=== PATIENT | male | born 1970 | race Caucasian/White ===

== ENCOUNTER 2017-02-02 00:23 | Emergency (ER) | payer OTHER, SELFPAY ==
--- NOTE | 2017-02-02 01:00 | ERPHSYRPT ---
- History of Present Illness Time Seen by Provider: 02/02/17 00:46 Source: patient Exam Limitations: no limitations Patient Subjective Stated Complaint: avel was at home home blood sugar went low , and began seizures lasting 30 to 40 seconds and went on for about 5 minutes Triage Nursing Assessment: pt alert and orietned pupils perla3, lung sounds clear, tracking well, avel have left leg leow the knee amputation x2 yrs. diabetic neuropathy all voer states he was in bed esleep and noticed something was off. woke him up and gave him glucagon and then he began having seizure activity and called ambulance Physician History: ABOUT 90 MINUTES AGO PT HAD A BLOOD GLUCOSE BELOW 20 AND HAD INTERMITTENT GENERALIZED SEIZURES LASTING UP TO 40 SECONDS PER SEIZURE FOR 5 MINUTES; DENIES PAIN, VOMITING, HEADACHE, FEVER. Allergies/Adverse Reactions: No Known Drug Allergies Allergy (Verified 02/02/17 01:02) Home Medications: Insulin Lispro [Humalog] 0 unit SQ AC 02/12/13 [History] Docusate Sodium [Dulcolax Stool Softener] 100 mg PO BID 11/30/15 [History] Simvastatin 40 mg [Zocor 40 mg] 40 mg PO DAILY 11/30/15 [History] Losartan Potassium [Cozaar 100Mg Tablet] 100 mg PO DAILY 12/14/15 [History] Amlodipine Besylate 5 mg [Norvasc 5 mg] 5 mg PO HS 12/29/15 [History] Empagliflozin [Jardiance] 10 mg PO DAILY 03/24/16 [History] Hydralazine HCl 25 mg PO BID 03/24/16 [History] Losartan/Hydrochlorothiazide [Losartan-Hctz 100-25 mg Tab] 1 tab PO DAILY [History] Hx Tetanus, Diphtheria Vaccination/Date Given: Yes Hx Influenza Vaccination/Date Given: No Hx Pneumococcal Vaccination/Date Given: No Immunizations Up to Date: Yes - Review of Systems Constitutional: No Fever Respiratory: No Dyspnea Cardiac: No Chest Pain Abdominal/Gastrointestinal: No Abdominal Pain, No Vomiting Neurological: Seizure, No Headache All Other Systems: Reviewed and Negative - Past Medical History Pertinent Past Medical History: Yes Neurological History: No Pertinent History ENT History: No Pertinent History Cardiac History: No Pertinent History, High Cholesterol, Hypertension Respiratory History: Other Endocrine Medical History: Diabetes Type II Musculoskeletal History: No Pertinent History, Other GI Medical History: No Pertinent History History: No Pertinent History Psycho-Social History: No Pertinent History Male Reproductive Disorders: No Pertinent History Other Medical History: LUNG BX/ LUNG MASS. Lt BKA - Past Surgical History Past Surgical History: Yes Neuro Surgical History: No Pertinent History Cardiac: Cardiac Catheterization Respiratory: Other Gastrointestinal: Appendectomy Genitourinary: No Pertinent History Musculoskeletal: Other Male Surgical History: No Pertinent History Other Surgical History: LUNG BX/MASS NEGATIVE. BONE TUMOR REMOVED. LT BKA - Social History Smoking Status: Former smoker How long have you smoked: 34 years Exposure to second hand smoke: No Drug Use: none Patient Lives Alone: No - Nursing Vital Signs Nursing Vital Signs: Initial Vital Signs Temperature 98.8 F Temperature Source Oral Pulse Rate 76 Respiratory Rate 18 Blood Pressure [Right Arm] 132/74 Pain Intensity 0 - Physical Exam General Appearance: alert Eye Exam: PERRL/EOMI Ears, Nose, Throat Exam: TMs normal, pharynx normal, moist mucous membranes Neck Exam: normal inspection Respiratory Exam: lungs clear Cardiovascular Exam: normal heart sounds Gastrointestinal/Abdomen Exam: soft, normal bowel sounds Back Exam: normal range of motion Extremity Exam: other (LEFT BKA) Neurologic Exam: alert, cooperative, No sensation nml (NEUOPATHY) Skin Exam: warm, dry SpO2 Interpretation: normal SpO2: 98 Oxygen Delivery: Room Air - Course Nursing assessment & vital signs reviewed: Yes - CT Exams Head CT Interpretation: Tele-radiologist Report (NO ACUTE FINDINGS) Ordered Tests: Active Orders 24 hr Category Date Time Status Accucheck STAT Care 02/02/17 00:53 Active Clean Catch Urine Specimen STAT Care 02/02/17 01:20 Active EKG-ER Only STAT Care 02/02/17 02:42 Active HEAD WITHOUT CONTRAST [CT] Stat Exams 02/02/17 00:53 Taken AMYLASE Stat Lab 02/02/17 00:45 Completed CBC W DIFF Stat Lab 02/02/17 00:45 Completed CMP Stat Lab 02/02/17 00:45 Completed LIPASE Stat Lab 02/02/17 00:45 Completed MAG [MAGNESIUM] Stat Lab 02/02/17 00:45 Completed Manual Differential NC Stat Lab 02/02/17 00:45 Completed UA W/ MICROSCOPIC Stat Lab 02/02/17 00:50 Completed Urine Triage Profile Stat Lab 02/02/17 00:50 Completed Medication Summary Discontinued Medications Generic Name Dose Route Start Last Admin Trade Name Malka PRN Reason Stop Dose Admin Dextrose Confirm 02/02/17 01:47 D50w 50 Ml Abboject Administered 02/02/17 01:48 Dose 50 ml IV .STK-MED ONE Dextrose 50 ml 02/02/17 01:56 02/02/17 01:57 D50w 50 Ml Abboject IV 02/02/17 01:57 50 ml STAT ONE Administration Lab/Rad Data: Laboratory Result Diagrams 02/02/17 00:45 02/02/17 00:45 Laboratory Results 02/02/17 02/02/17 02/02/17 Range/Units 00:50 00:50 00:45 WBC (4.0-10.5) K/mm3 RBC (4.1-5.6) M/mm3 Hgb (12.5-18.0) gm/dl Hct (42-50) % MCV (78-100) fl MCH (26-32) pg MCHC (32-36) g/dl RDW (11.5-14.0) % Plt Count (150-450) K/mm3 MPV (6-9.5) fl Segmented Neutrophils (36.-66.) % Lymphocytes (Manual) (24-44) % Monocytes (Manual) (0.0-12.0) % Differential Comment Platelet Estimate (NORMAL) Sodium (136-145) mEq/L Potassium (3.5-5.1) mEq/L Chloride (98-107) mEq/L Carbon Dioxide (21-32) mEq/L Anion Gap (5-15) MEQ/L BUN (9-20) mg/dL Creatinine (0.55-1.30) mg/dl Estimated GFR ML/MIN Glucose (70-110) MG/DL Calcium (8.5-10.1) mg/dL Magnesium 1.6 L (1.8-2.4) mg/dL Total Bilirubin (0.2-1.0) mg/dL AST (15-37) U/L ALT (12-78) U/L Alkaline Phosphatase (46-116) U/L Serum Total Protein (6.4-8.2) gm/dL Albumin (3.4-5.0) g/dL Amylase (25-115) U/L Lipase (73-393) U/L Ur Collection Type CLEAN CATCH Urine Color YELLOW (YELLOW) Urine Appearance CLEAR (CLEAR) Urine pH 6.0 (5-6) Ur Specific Plessis 1.020 (1.005-1.025) Urine Protein 100 (Negative) Urine Glucose (UA) NEGATIVE (NEGATIVE) mg/dL Urine Ketones NEGATIVE (NEGATIVE) Urine Nitrite NEGATIVE (NEGATIVE) Urine Bilirubin NEGATIVE (NEGATIVE) Urine Urobilinogen 0.2 (0-1) mg/dL Urine WBC (Auto) NEGATIVE (NEGATIVE) Urine RBC (Auto) MODERATE (0-5) Pepe/ul Urine Microscopic RBC 5-10 (0-2) /HPF Ur Epithelial Cells FEW (FEW) /HPF Urine Bacteria RARE (NEGATIVE) /HPF Urine Mucus SLIGHT (NEGATIVE) /HPF Urine Opiates Level NEG. (NEGATIVE) Ur Methadone NEG. (NEGATIVE) Urine Barbiturates NEG. (NEGATIVE) Ur Phencyclidine (PCP) NEG. (NEGATIVE) Urine Amphetamine NEG. (NEGATIVE) U Benzodiazepine Level NEG. (NEGATIVE) Urine Cocaine NEG. (NEGATIVE) Urine Marijuana (THC) NEG. (NEGATIVE) Specimen Received 02/02/17:0030 02/02/17 02/02/17 02/02/17 Range/Units 00:45 00:45 00:45 WBC 19.6 H (4.0-10.5) K/mm3 RBC 4.85 (4.1-5.6) M/mm3 Hgb 14.4 (12.5-18.0) gm/dl Hct 41.6 L (42-50) % MCV 85.8 (78-100) fl MCH 29.7 (26-32) pg MCHC 34.6 (32-36) g/dl RDW 12.8 (11.5-14.0) % Plt Count 244 (150-450) K/mm3 MPV 9.4 (6-9.5) fl Segmented Neutrophils 84 H (36.-66.) % Lymphocytes (Manual) 7 L (24-44) % Monocytes (Manual) 9 (0.0-12.0) % Differential Comment NORMAL Platelet Estimate NORMAL (NORMAL) Sodium 136 (136-145) mEq/L Potassium 3.1 L (3.5-5.1) mEq/L Chloride 101 (98-107) mEq/L Carbon Dioxide 23.1 (21-32) mEq/L Anion Gap 14.9 (5-15) MEQ/L BUN 21 H (9-20) mg/dL Creatinine 1.34 H (0.55-1.30) mg/dl Estimated GFR > 60 ML/MIN Glucose 88 (70-110) MG/DL Calcium 9.1 (8.5-10.1) mg/dL Magnesium (1.8-2.4) mg/dL Total Bilirubin 0.3 (0.2-1.0) mg/dL AST 23 (15-37) U/L ALT 27 (12-78) U/L Alkaline Phosphatase 95 (46-116) U/L Serum Total Protein 7.4 (6.4-8.2) gm/dL Albumin 3.6 (3.4-5.0) g/dL Amylase 33 (25-115) U/L Lipase 70 L (73-393) U/L Ur Collection Type Urine Color (YELLOW) Urine Appearance (CLEAR) Urine pH (5-6) Ur Specific Plessis (1.005-1.025) Urine Protein (Negative) Urine Glucose (UA) (NEGATIVE) mg/dL Urine Ketones (NEGATIVE) Urine Nitrite (NEGATIVE) Urine Bilirubin (NEGATIVE) Urine Urobilinogen (0-1) mg/dL Urine WBC (Auto) (NEGATIVE) Urine RBC (Auto) (0-5) Pepe/ul Urine Microscopic RBC (0-2) /HPF Ur Epithelial Cells (FEW) /HPF Urine Bacteria (NEGATIVE) /HPF Urine Mucus (NEGATIVE) /HPF Urine Opiates Level (NEGATIVE) Ur Methadone (NEGATIVE) Urine Barbiturates (NEGATIVE) Ur Phencyclidine (PCP) (NEGATIVE) Urine Amphetamine (NEGATIVE) U Benzodiazepine Level (NEGATIVE) Urine Cocaine (NEGATIVE) Urine Marijuana (THC) (NEGATIVE) Specimen Received - Departure Time of Disposition: 02:49 Departure Disposition: Home Clinical Impression: SEIZURE, HYPOKALEMIA, HYPOMAGNESEMIA, HYPOGLYCEMIA Condition: Fair Critical Care Time: No Instructions: Hypoglycemia Additional Instructions: FOLLOW UP WITH PRIVATE DOCTOR TOMORROW.
[2017-02-02 01:01] LABS: Mean Cell Volume 85.8 fl (78-100); Mean Corpuscular Hemoglobin 29.7 pg (26-32); Mean Platelet Volume 9.4 fl (6-9.5); Platelet Count 244 K/mm3 (150-450); Red Blood Count 4.85 M/mm3 (4.1-5.6); Red Cell Distribution Width 12.8 % (11.5-14.0); White Blood Count 19.6 K/mm3 (4.0-10.5)
[2017-02-02 01:10] LABS: LIPASE 70 U/L (73-393)
[2017-02-02 01:12] LABS: ALBUMIN 3.6 g/dL (3.4-5.0); ALKALINE PHOSPHATASE 95 U/L (46-116); ANION GAP 14.9 MEQ/L (5-15); BILIRUBIN,TOTAL 0.3 mg/dL (0.2-1.0); BLOOD UREA NITROGEN 21 mg/dL (9-20); CHLORIDE 101 mEq/L (98-107); Carbon Dioxide 23.1 mEq/L (21-32); Glucose 88 MG/DL (70-110); Potassium 3.1 mEq/L (3.5-5.1); SGOT/AST 23 U/L (15-37); SGPT/ALT 27 U/L (12-78); SODIUM 136 mEq/L (136-145); Total Protein 7.4 gm/dL (6.4-8.2)
[2017-02-02] MEDS ORDERED: D50W 50 ml Abboject IV ONE ×2 (01:47→01:56)
[2017-02-02 02:01] VITALS: O2SAT 98
[2017-02-02 02:01] LABS: COMPLETE URINE MICROSCOPIC? YES; Collection Type CLEAN CATCH; Mucus SLIGHT /HPF (NEGATIVE)
[2017-02-02 02:02] LABS: Bacteria RARE /HPF (NEGATIVE); Epithelial Cells FEW /HPF (FEW)
[2017-02-02 02:37] LABS: Platelet Estimate NORMAL (NORMAL); Total Cells Counted 100
[2017-02-02] MEDS ORDERED: POTASSIUM CHL 40 MEQ/30 ML ORAL SOLUTION ONE (02:57)
[2017-02-02] MEDS ORDERED: MAG-OX 400 ONE (02:57)
[2017-02-02 03:18] VITALS: BP 120/78; PULSE 68
--- NOTE | 2017-02-02 09:38 | XRAY ---
Indication: Seizure. Hypoglycemia. Multiple contiguous axial images obtained through the head without contrast. Comparison: October 27, 2011. Again normal appearing brain parenchyma, ventricles, and bony calvarium. There remains small polyps/retention cysts in the right sphenoid and left maxillary sinus grossly unchanged. Mastoid air cells are pneumatized and clear. Impression: Stable negative CT head without contrast exam. Stable paranasal polyps/retention cysts. Comment: Preliminary interpretation was made by [facility]. No discrepancy. CTDI 67.99
[2017-02-02] MEDS ORDERED: POTASSIUM CHL 40 MEQ/30 ML ORAL SOLUTION PO SCH (10:00)
[2017-02-02] MEDS ORDERED: MAG-OX 400 PO SCH (10:00)
== END 2017-02-02 03:15 | disposition home or self-care (01) ==
LOC: ED 00:23
DX: R56.9 Unspecified convulsions (principal); E87.6 Hypokalemia; E83.42 Hypomagnesemia; E16.2 Hypoglycemia, unspecified; E11.9 Type 2 diabetes mellitus without complications; Z79.4 Long term (current) use of insulin; Z79.899 Other long term (current) drug therapy
CPT/HCPCS: 36415; 70450; 80053; 80307; 81000; 82150; 82962; 83690; 83735; 85025; 93005; 96374; 99283; 99284; A9270-GY

== ENCOUNTER 2017-03-15 09:02 | Emergency (ER) | payer OTHER ==
[2017-03-15] MEDS ORDERED: Hydromorphone 1 mg/ml Ampule IM ONE (09:42)
[2017-03-15] MEDS ORDERED: Phenergan 25 MG INJ IM ONE (09:42)
[2017-03-15] MEDS ORDERED: Phenergan 25 MG INJ ONE (09:45)
--- NOTE | 2017-03-15 09:45 | ERPHSYRPT ---
- History of Present Illness Time Seen by Provider: 03/15/17 09:35 Source: patient Exam Limitations: clinical condition Patient Subjective Stated Complaint: fell going up steps this am and struck left ribs on a step. pain to left anterior upper ribs. Triage Nursing Assessment: ambulated to room guarding left upper chest. skin w/ d, color pale, resp shallow but nonlabored. states it hurts to take a deep breath. area tender to touch. no bruising noted. Physician History: PATIENT WITH HISTORY OF TYPE 2 DIABETES SLIPPED WHILE WALKING UP STEPS, FELL AND STRUCK LEFT SIDE OF CHEST UPON STEP. PATIENT HAS LEFT SIDED RIB PAIN, WORSE UPON MOTION OF TORSO. DENIES ASSOCIATED HEAD, NECK OR BACK INJURY. Occurred: just prior to arrival Reason for Fall: slipped Injuries/Pain Location: chest Loss of Consciousness: no loss of consciousness Severity of Pain-Max: moderate Severity of Pain-Current: moderate Modifying Factors: Improves With: movement Allergies/Adverse Reactions: No Known Drug Allergies Allergy (Verified 03/15/17 09:08) Home Medications: Insulin Lispro [Humalog] 0 unit SQ AC 02/12/13 [History] Simvastatin 40 mg [Zocor 40 mg] 40 mg PO HS 11/30/15 [History] Losartan Potassium [Cozaar 100Mg Tablet] 100 mg PO DAILY 12/14/15 [History] Hydralazine HCl 25 mg PO BID 03/24/16 [History] Losartan/Hydrochlorothiazide [Losartan-Hctz 100-25 mg Tab] 1 tab PO DAILY [History] Diltiazem HCl 240 mg [Cardizem CD 240 MG] 240 mg PO DAILY 03/15/17 [ History] Ergocalciferol (Vitamin D2) [Vitamin D] 50,000 unit PO WEEKLY 03/15/17 [History] Ezetimibe 10 mg [Zetia 10 MG] 10 mg PO DAILY 03/15/17 [History] Gabapentin [Neurontin] 600 mg PO TID 03/15/17 [History] Linaclotide [Linzess] 145 mcg PO DAILY 03/15/17 [History] Magnesium Oxide 400 mg [Mag-Ox 400] 400 mg PO BID 03/15/17 [History] Hx Tetanus, Diphtheria Vaccination/Date Given: No (2005) Hx Influenza Vaccination/Date Given: No Hx Pneumococcal Vaccination/Date Given: No Immunizations Up to Date: No - Review of Systems Constitutional: No Fever, No Chills Eyes: No Symptoms Ears, Nose, & Throat: No Symptoms Respiratory: No Symptoms, No Cough, No Dyspnea Cardiac: Chest Pain, No Edema, No Syncope Abdominal/Gastrointestinal: No Symptoms, No Abdominal Pain, No Nausea, No Vomiting, No Diarrhea Genitourinary Symptoms: No Symptoms, No Dysuria Musculoskeletal: No Symptoms, No Back Pain, No Neck Pain Skin: No Symptoms, No Rash Neurological: No Dizziness, No Focal Weakness, No Sensory Changes Psychological: No Symptoms Endocrine: No Symptoms All Other Systems: Reviewed and Negative - Past Medical History Pertinent Past Medical History: Yes Neurological History: No Pertinent History ENT History: No Pertinent History Cardiac History: No Pertinent History, High Cholesterol, Hypertension Respiratory History: Other Endocrine Medical History: Diabetes Type II Musculoskeletal History: No Pertinent History, Other GI Medical History: No Pertinent History History: No Pertinent History Psycho-Social History: No Pertinent History Male Reproductive Disorders: No Pertinent History Other Medical History: LUNG BX/ LUNG MASS. Lt BKA - Past Surgical History Past Surgical History: Yes Neuro Surgical History: No Pertinent History Cardiac: Cardiac Catheterization Respiratory: Other Gastrointestinal: Appendectomy Genitourinary: No Pertinent History Musculoskeletal: Other Male Surgical History: No Pertinent History Other Surgical History: LUNG BX/MASS NEGATIVE. BONE TUMOR REMOVED. LT BKA - Social History Smoking Status: Former smoker How long have you smoked: 34 years Exposure to second hand smoke: No Drug Use: none Patient Lives Alone: No - Nursing Vital Signs Nursing Vital Signs: Initial Vital Signs Temperature 97.7 F Temperature Source Oral Pulse Rate 86 Respiratory Rate 20 Blood Pressure [Right Arm] 145/84 Pain Intensity 6 - Arco Coma Score Best Eye Response (Shey): (4) open spontaneously Best Verbal Response (Shey): (5) oriented Best Motor Response (Shey): (6) obeys commands Arco Total: 15 - Physical Exam General Appearance: no apparent distress, alert Head Injury: no evidence of injury Eye Exam: PERRL/EOMI ENT Exam: airway nml Neck Exam: supple, normal inspection, other (NONTENDER), No tenderness Respiratory/Chest Exam: chest tenderness (TENDERNESS LEFT ANTERIOR LATERAL RIBS 4TH TO 6TH , NO CREPITUS OR ECCHYMOSIS), normal breath sounds, No respiratory distress Cardiovascular Exam: normal heart sounds, regular rate/rhythm Gastrointestinal Exam: soft, No tenderness, No distention, No guarding, No ecchymosis Back Exam: normal inspection, No vertebral tenderness Extremity Exam: normal inspection, normal range of motion, pelvis stable, No deformities Neurologic Exam: alert, oriented x 3, cooperative, sensation nml, No motor deficits Skin Exam: normal color, warm, dry SpO2: 100 Oxygen Delivery: Room Air - Radiology Exams Chest X-ray Interpretation: Discussed w/ radiologist, No Fracture, No Infiltrates Left Ribs X-ray Interpretation: Discussed w/ radiologist, Negative (NO EVIDENCE OF FRACTURE) Ordered Tests: Active Orders 24 hr Category Date Time Status CHEST 2 VIEWS (PA AND LAT) Stat Exams 03/15/17 09:42 Completed RIBS UNILATERAL Stat Exams 03/15/17 09:41 Completed Medication Summary Discontinued Medications Generic Name Dose Route Start Last Admin Trade Name Freq PRN Reason Stop Dose Admin Hydromorphone HCl 1 mg 03/15/17 09:42 03/15/17 10:09 Hydromorphone 1 Mg/Ml Ampule IM 03/15/17 09:43 1 mg STAT ONE Administration Hydromorphone HCl Confirm 03/15/17 09:46 Hydromorphone 1 Mg/Ml Ampule Administered 03/15/17 09:47 Dose 1 mg .ROUTE .STK-MED ONE Promethazine HCl 25 mg 03/15/17 09:42 03/15/17 10:09 Phenergan 25 Mg Inj IM 03/15/17 09:43 25 mg STAT ONE Administration Promethazine HCl Confirm 03/15/17 09:45 Phenergan 25 Mg Inj Administered 03/15/17 09:46 Dose 25 mg .ROUTE .STK-MED ONE - Progress Progress: improved, pain not gone completely Counseled pt/family regarding: diagnosis, need for follow-up, rad results - Departure Time of Disposition: 10:55 Departure Disposition: Home Clinical Impression: LEFT CHEST WALL CONTUSIONS Condition: Stable Critical Care Time: No Additional Instructions: NORCO 5/325 EVERY 4 HOURS NEEDED. AVOID LIFTING OVER 10 POUNDS USING LEFT ARM. CONSULT YOUR FAMILY PHYSICIAN FOR EVALUATION IN 1 WEEK. Prescriptions: Hydrocodone Bit/Acetaminophen [[place] 5-325 Tablet] 1 each PO Q4H PRN PRN #10 tablet PRN Reason: Pain
[2017-03-15] MEDS ORDERED: Hydromorphone 1 mg/ml Ampule ONE (09:46)
--- NOTE | 2017-03-15 10:28 | XRAY ---
Exam: 4 views of the left rib cage from 03/15/2017. Comparison: None. Indication: Patient fell this morning, pain beneath left pectoral muscle. Findin AP and both oblique images of the left rib cage were obtained. I see no acute left rib fracture line or cortical displacement to suggest a displaced left rib fracture. There is some minimal subsegmental plate atelectasis at the left lung base. No pleural fluid or pneumothorax is seen. Impression: 1. No left-sided rib fracture is seen. 2. Minimal subsegmental plate atelectasis is seen at the lateral left lung base.
--- NOTE | 2017-03-15 10:31 | XRAY ---
Exam: Two-view chest from 03/15/2017. Comparison: Two-view chest from 10/27/2011. Indication: Fell this morning, pain beneath left pectoral muscle. Findings: Upright PA and lateral chest films were obtained. There is average inflation of the lungs. The transverse heart size is normal. Mild tortuosity of the descending thoracic aorta is seen. Minimal subsegmental plate atelectasis is seen at both lung bases. There is a suggestion of an 11.5 mm nodule within the central right lower lung field. This may have been present on the prior film point from 10/27/2011 as well. The remainder of the lung matthew appears clear. No vascular congestion, pneumothorax, or pleural effusion is seen. The bones appear grossly intact. Impression: 1. Minimal plate atelectasis is seen at both lung bases. 2. No acute cardiopulmonary disease is seen. 3. Soft tissue lung nodule at the central right lung base. I believe this can be seen on a prior CT of the chest from 06/29/2011 within the right lower lobe. Therefore, it is likely benign.
[2017-03-15 11:00] VITALS: BP 130/78; PULSE 78; O2SAT 97
== END 2017-03-15 10:59 | disposition home or self-care (01) ==
LOC: ED 09:02
DX: S20.212A Contusion of left front wall of thorax, initial encounter (principal); W10.9XXA Fall (on) (from) unspecified stairs and steps, initial encounter; E11.9 Type 2 diabetes mellitus without complications; R07.81 Pleurodynia; Z79.899 Other long term (current) drug therapy; E78.00 Pure hypercholesterolemia, unspecified; I10 Essential (primary) hypertension
CPT/HCPCS: 71020; 71100; 96372; 99284; J1170; J2550

== ENCOUNTER 2024-03-04 06:11 | Day surgery (SDC) | payer MEDICARE ==
[2024-03-04] MEDS ORDERED: Xylocaine 1% Vial 30 ML PF IJ ONE (06:39)
[2024-03-04] MEDS ORDERED: Marcaine Mpf 0.5% Vial 30 Ml ONE (06:39)
[2024-03-04] MEDS: Lactated Ringers 1,000 ML IV SCH (06:46)
[2024-03-04] MEDS: CEFAZOLIN 2 GM-D5W BAG** 2 GM/50 ML ML IV SCH (06:47)
[2024-03-04 07:17] VITALS: RESP 18
[2024-03-04 07:28] LABS: Hematocrit 48.7 % (42-50); Hemoglobin 16.9 g/dL (12.5-18.0); Mean Cell Volume 84.8 fL (78-100); Mean Corpuscular Hemoglobin 29.4 pg (26-32); Mean Corpuscular Hgb Concent. 34.7 g/dL (32-36); Mean Platelet Volume 9.2 fL (7.5-11.0); Platelet Count 246 x10^3/uL (150-450); Red Blood Count 5.74 x10^6/uL (4.1-5.6); Red Cell Distribution Width 13.2 % (11.5-14.0); White Blood Count 6.1 x10^3/uL (4.0-10.5)
[2024-03-04 07:41] LABS: ALBUMIN 4.5 g/dL (3.5-5.0); ANION GAP 13.6 MEQ/L (5-15); BILIRUBIN,TOTAL 0.6 mg/dL (0.2-1.3); Calcium 9.8 mg/dL (8.4-10.2); Creatinine 1 1.31 mg/dL (0.66-1.25); EST GLOMERULAR FILTRATION RATE 65.5 ML/MIN; Potassium 4.1 mmol/L (3.5-5.1); Total Protein 7.9 g/dL (6.3-8.2)
[2024-03-04] MEDS: D50W 50 ml Abboject IV ONE (09:32)
[2024-03-04] MEDS ORDERED: Versed 2 MG/2 ML Injection ONE (09:41)
[2024-03-04] MEDS ORDERED: DIPRIVAN 200 MG/20 ML IV ONE ×2 (09:41→10:50)
[2024-03-04] MEDS ORDERED: SUBLIMAZE 100 MCG/2 ML ONE (09:41)
[2024-03-04] MEDS ORDERED: KEFZOL 1 GM ONE (10:39)
[2024-03-04] MEDS ORDERED: Ephedrine Sulfate 50 MG/ML ONE (10:47)
[2024-03-04] MEDS ORDERED: Zofran 4 MG/2 ML VIAL ONE (11:00)
[2024-03-04 12:21] VITALS: BP 136/83; PULSE 73; TEMP 97; O2SAT 95
--- NOTE | 2024-03-05 08:03 | OP ---
SURGERY DATE/TIME: 03/04/2024 1023 PREOPERATIVE DIAGNOSES: 1) Osteomyelitis third digits of right foot.2) Diabetes mellitus type II. 3) Diabetic peripheral neuropathy. 4) History of chronic osteomyelitis. POSTOPERATIVE DIAGNOSES: 1) Osteomyelitis third digits of right foot.2) Diabetes mellitus type II. 3) Diabetic peripheral neuropathy. 4) History of chronic osteomyelitis. PROCEDURE: Amputation at metatarsophalangeal joint right third digit. SURGEON: Forest Bucio DPM. FIELD TECHNICAL SUPPORT CONSULTANT: None. ANESTHESIA: Monitored anesthesia care with intraoperative local block consisting of 10 cc of a 1:1 mixture of 1% lidocaine plain and 0.5% bupivacaine plain. HEMOSTASIS: Pressure dressing. QUANTITATIVE BLOOD LOSS: Approximately 5 cc. MATERIALS: 4-0 Monocryl, 3-0 Nylon. INJECTABLES: 10 cc of a 1:1 mixture of 1% lidocaine plain and 0.5% bupivacaine plain injected in a digital block-type fashion to the third digit of the right foot. INDICATION FOR SURGERY: The patient was sent as a referral to my office with concern for osteomyelitis by his family medicine practitioner who took a bone scan of his right foot showing a significant amount of uptake in the distal aspect of the third digit. On inspection, the wound was seemingly largely closed with the exception of a small area of superficial ulceration. On inspection culture obtained and a MRI was ordered this demonstrated significant amount of osteomyelitis to the distal tip of the third digit on the right foot as well as cultures with a relatively aggressive gram-positive bacteria. As a result, discussion was held with the patient in regards to options being that this is likely chronic on acute given the appearance of the x-rays. From that standpoint, the decision was made by the patient to proceed with an amputation of the third digit. The patient understands all risks, complications and benefits of surgical intervention at this time including but not limited to infection, hematoma, seroma, possibility of delayed wound healing, nonwound healing and possible need for further surgical intervention at a later date. No guarantees were provided as to the outcome of surgical intervention at this time. Plenty of time was allowed for the patient to ask questions which were answered to his apparent satisfaction. It is at this time we decided to proceed. DESCRIPTION OF PROCEDURE AND FINDINGS: The patient is brought into the OR and placed on the OR table in the supine position. At this time, monitored anesthesia care was administered until the patient was adequately sedated. The right lower extremity was prepped and draped in the typical sterile fashion and lowered onto the surgical field. At this time, a 10 cc block consisting of a 1:1 mixture of 1% lidocaine plain and 0.5% bupivacaine plain injected in a digital block-type fashion to the right third digit. Following this, a marking pen was utilized to make a planned incision with mediolateral flaps extending up the proximal phalangeal base to save as much soft tissue as possible. From that standpoint, decision was made to proceed and a 10 blade was utilized to make a perpendicular incision down to the level of bone, full thickness circumferentially around the third digit at the base. Biopsies of the proximal phalanx. Full thickness flaps were elevated to the metatarsophalangeal joint, which was disarticulated utilizing a pair of surgical scissors. At this time, 1,000 ml of Bactisure and approximately 1.5 liters of sterile saline were utilized to flush the surgical site. 4-0 Monocryl was utilized to coapt the subcutaneous edges and 3-0 Nylon was utilized in a horizontal mattress-type fashion. A dressing consisting of Betadine, Adaptic, 4x4, Kerlix, ABD and NAVIN was applied to the patient's right lower extremity. The patient was then reversed from anesthesia and returned to the postoperative anesthesia care unit with vital signs stable and vascular status intact. The patient handled the anesthesia as well as the procedure without significant complication. Postoperative orders as indicated in the patient's discharge chart.
== END 2024-03-04 12:25 | disposition home or self-care (01) ==
LOC: SDC 06:11
PROVIDERS: ATTEND Podiatrist Foot & Ankle Surgery
DX: M86.9 Osteomyelitis, unspecified (principal); E11.9 Type 2 diabetes mellitus without complications; E11.42 Type 2 diabetes mellitus with diabetic polyneuropathy; M86.60 Other chronic osteomyelitis, unspecified site
CPT/HCPCS: 28820; 36415; 80053; 82947; 85027; 93005; A6260; J0690; J2250; J2405; J2704; J3010